=== PATIENT | male | born 1955 | race Caucasian/White ===

== ENCOUNTER 2018-08-28 14:12 | Emergency (ER) | payer OTHER ==
[2018-08-28] MEDS ORDERED: TETANUS/DIPHTHERIA TOX-ADULT 0.5 ML SYR (>=7YO) IM ONE (14:58)
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
--- NOTE | 2018-08-29 20:51 | EKG REPORT ---
SEVERITY:- NORMAL ECG - SINUS RHYTHM : Confirmed by: Ivana Jacobson MD 29-Aug-2018 20:50:53
== END 2018-08-28 18:11 | disposition home or self-care (01) ==
LOC: ER 14:12
DX: S46.212A Strain of muscle, fascia and tendon of other parts of biceps, left arm, initial encounter (principal); S66.011A Strain of long flexor muscle, fascia and tendon of right thumb at wrist and hand level, initial encounter; S80.812A Abrasion, left lower leg, initial encounter; M54.2 Cervicalgia; V49.40XA Driver injured in collision with unspecified motor vehicles in traffic accident, initial encounter; E78.00 Pure hypercholesterolemia, unspecified; I10 Essential (primary) hypertension
CPT/HCPCS: 70450; 71046; 72125; 90714; 93005; 93010; 99284